=== PATIENT | female | born 1935 | race Caucasian/White ===

== ENCOUNTER 2016-09-13 03:07 | Inpatient (IN) | payer MEDICARE, BC ==
[~2016-09-13] VITALS: Ht 154.9 cm; Wt 79.0 kg
[2016-09-13] VITALS (16 sets, daily range): BP systolic 114–163; BP diastolic 52–80
[2016-09-13 03:34] LABS: BASO # 0.1 x10^3/uL (0.0-0.2); BASO % 1 % (0-3); EOS % 3 % (0-3); HEMATOCRIT 39.4 % (36.0-47.0); HEMOGLOBIN 12.8 g/dL (12.0-15.5); LYMPH % 40 % (24-48); MEAN CORPUSCULAR HEMOGLOBIN 29 pg (25-35); MEAN CORPUSCULAR HGB CONC 33 g/dL (31-37); MEAN CORPUSCULAR VOLUME 90 fL (79-100); MONO % 14 % (0-9); NEUT % 43 % (31-73); PLATELET COUNT 278 x10^3/uL (140-400); RED BLOOD COUNT 4.36 x10^6/uL (3.50-5.40); RED CELL DISTRIBUTION WIDTH 18.5 % (11.5-14.5); WHITE BLOOD COUNT 7.6 x10^3/uL (4.0-11.0)
[2016-09-13 03:43] LABS: CALCIUM 8.9 mg/dL (8.5-10.1); GFR 53.2; POTASSIUM 4.2 mmol/L (3.5-5.1)
[2016-09-13] MEDS ORDERED: NITROGLYCERIN SUBLINGUAL 0.4 MG BOTTLE OF 25. SL ONE (03:47)
[2016-09-13] MEDS ORDERED: ONDANSETRON PF 4 MG/2 ML VIAL. IV PRN (04:00)
[2016-09-13] MEDS ORDERED: NITROGLYCERIN SUBLINGUAL 0.4 MG BOTTLE OF 25. SL PRN (04:00)
[2016-09-13] MEDS: IV NORMAL SALINE 1000ML BAG 1,000 ML IV SCH ×2 (04:18→14:00)
[2016-09-13] MEDS ORDERED: ENAL5TAB PO (05:32)
[2016-09-13] MEDS ORDERED: METF10002 PO (05:32)
[2016-09-13] MEDS ORDERED: ISOS30TA4 PO (05:32)
[2016-09-13] MEDS ORDERED: METO25TA9 PO (05:32)
[2016-09-13] MEDS ORDERED: ASPI-482 PO (05:32)
[2016-09-13] MEDS ORDERED: CLOP75TA PO (05:32)
[2016-09-13] MEDS ORDERED: OMEP10SU PO (05:32)
[2016-09-13] MEDS ORDERED: SIMV40TA PO (05:32)
--- NOTE | 2016-09-13 05:42 | PHYS DOC ---
Past Medical History Past Medical History: Diabetes-Type II, Hypertension Past Surgical History: Appendectomy, Cholecystectomy, Hysterectomy, Splenectomy , Tonsillectomy Alcohol Use: None Drug Use: None Adult General Chief Complaint Chief Complaint: CHEST PAIN-CARDIAC NATURE HPI HPI 81-year-old female who states she's been having significant left upper chest pain that does radiate somewhat into her neck and shoulders that she noticed earlier today with some dizziness as well. She states she wass sitting in her chair when it started. She states last time she had symptoms like this was several months ago and she was admitted to and had a stress test done and was told she did have some mild blockage. She states she was placed on medications and has been symptom free until tonight. She states she took 2 SL nitros at home with significant relief for her symptoms until her symptoms began to return prior to arrival. She speaking in complete sentences and in no acute distress. Review of Systems Review of Systems Constitutional: Denies fever or chills [] Eyes: Denies change in visual acuity, redness, or eye pain [] HENT: Denies nasal congestion or sore throat [] Respiratory: Denies cough or shortness of breath [] Cardiovascular: No additional information not addressed in HPI [] GI: Denies abdominal pain, nausea, vomiting, bloody stools or diarrhea [] : Denies dysuria or hematuria [] Musculoskeletal: Denies back pain or joint pain [] Integument: Denies rash or skin lesions [] Neurologic: Denies headache, focal weakness or sensory changes [] Endocrine: Denies polyuria or polydipsia [] Current Medications Current Medications Current Medications Medications (Trade) Dose Ordered [facility] Start Time Stop Time Status Last Admin Dose Admin Nitroglycerin (Nitrostat) 0.4 mg STK-MED ONCE 09/13/16 03:47 09/13/16 03:48 DC Allergies Allergies Allergies Coded Allergies Type Severity Reaction Last Updated Verified Penicillins Allergy Unknown 09/13/16 Yes Sulfa (Sulfonamide Antibiotics) Allergy Unknown 09/13/16 Yes Physical Exam Physical Exam Constitutional: Well developed, well nourished, no acute distress, non-toxic appearance. [] HENT: Normocephalic, atraumatic, bilateral external ears normal, oropharynx moist, no oral exudates, nose normal. [] Eyes: PERRLA, EOMI, conjunctiva normal, no discharge. [] Neck: Normal range of motion, no tenderness, supple, no stridor. [] Cardiovascular:Heart rate regular rhythm, no murmur [] Lungs & Thorax: Bilateral breath sounds clear to auscultation [] Abdomen: Bowel sounds normal, soft, no tenderness, no masses, no pulsatile masses. [] Skin: Warm, dry, no erythema, no rash. [] Back: No tenderness, no CVA tenderness. [] Extremities: No tenderness, no cyanosis, no clubbing, ROM intact, no edema. [] Neurologic: Alert and oriented X 3, normal motor function, normal sensory function, no focal deficits noted. [] Psychologic: Affect normal, judgement normal, mood normal. [] Current Patient Data Vital Signs Vital Signs Date Time Temp Pulse Resp B/P Pulse Ox O2 Delivery O2 Flow Rate FiO2 09/13/16 03:13 97.7 64 16 168/77 96 Room Air 97.7 Lab Values Laboratory Tests Test 09/13/16 03:25 White Blood Count 7.6x10^3/uL (4.0-11.0) Red Blood Count 4.36x10^6/uL (3.50-5.40) Hemoglobin 12.8g/dL (12.0-15.5) Hematocrit 39.4% (36.0-47.0) Mean Corpuscular Volume 90fL (79-100) Mean Corpuscular Hemoglobin 29pg (25-35) Mean Corpuscular Hemoglobin Concent 33g/dL (31-37) Red Cell Distribution Width 18.5% (11.5-14.5) H Platelet Count 278x10^3/uL (140-400) Neutrophils (%) (Auto) 43% (31-73) Lymphocytes (%) (Auto) 40% (24-48) Monocytes (%) (Auto) 14% (0-9) H Eosinophils (%) (Auto) 3% (0-3) Basophils (%) (Auto) 1% (0-3) Neutrophils # (Auto) 3.2x10^3uL (1.8-7.7) Lymphocytes # (Auto) 3.0x10^3/uL (1.0-4.8) Monocytes # (Auto) 1.0x10^3/uL (0.0-1.1) Eosinophils # (Auto) 0.2x10^3/uL (0.0-0.7) Basophils # (Auto) 0.1x10^3/uL (0.0-0.2) Sodium Level 146mmol/L (136-145) H Potassium Level 4.2mmol/L (3.5-5.1) Chloride Level 110mmol/L (98-107) H Carbon Dioxide Level 28mmol/L (21-32) Anion Gap 8 (6-14) Blood Urea Nitrogen 14mg/dL (7-20) Creatinine 1.0mg/dL (0.6-1.0) Estimated GFR (Cockcroft-Gault) 53.2 Glucose Level 120mg/dL (70-99) H Calcium Level 8.9mg/dL (8.5-10.1) Troponin I Quantitative < 0.017ng/mL (0.000-0.055) Laboratory Tests 09/13/16 03:25 Laboratory Tests 09/13/16 03:25 EKG EKG EKG as interpreted by me shows a sinus rhythm of 67 bpm. There are no obvious signs of ischemia. This EKG does not meet STEMI criteria. There is no ectopy. There is normal intervals. Radiology/Procedures Radiology/Procedures Portable 1 view of the chest as interpreted by me does not reveal an acute cardiopulmonary process Course & Med Decision Making Course & Med Decision Making Pertinent Labs and Imaging studies reviewed. (See chart for details) This 81-year-old female who's having symptoms concerning for angina be admitted to the hospital with cardiology consult. Her EKG, chest x-ray and blood work including a set of cardiac enzymes is negative. Patient was given a sublingual nitroglycerin and a nitroglycerin patch with significant relief of symptoms. Patient is on Plavix and took aspirin earlier. I discussed her case with the hospitalist, Dr. Herrera, who agreed to accept the patient with cardiology consult. I additionally discussed the case with the aircraft servicer, Dr. Roberson , who agreed to admit the patient for further evaluation and treatment. Dr. Roberson states the patient will likely receive heart catheterization later today. Dragon Disclaimer Dragon Disclaimer This electronic medical record was generated, in whole or in part, using a voice recognition dictation system. Departure Departure Impression: Primary Impression: Angina at rest Disposition: ADMITTED INPATIENT Admitting Physician: Lucia Herrera Condition: STABLE Referrals: LUCIA HERRERA MD (PCP) ALISE ELLIOTT DO Sep 13, 2016 05:42
--- NOTE | 2016-09-13 06:29 | EKG ---
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
--- NOTE | 2016-09-13 06:51 | ACF ---
Admit Criteria Forms Admit Criteria Forms Admit Criteria Forms ANGINA Clinical Indications for Admission to Inpatient Care (Place 'X' for any and all applicable criteria): Admission is indicated for suspected angina (e.g, chest pain pattern, angina- equivalent symptom, or other finding suggesting unstable angina) with ANY ONE of the following(1)(2)(3)(4)(5): [X]I. Angina needing acute intervention as indicated by ALL of the following ( 11)(12): [X]a) Unstable angina is present as indicated by angina that is ANY ONE of the following: [ ]i) New onset [ ]ii) Nocturnal [ ]iii) Prolonged at rest [X]iv) Progressive [X]b) Angina warrants acute intervention as indicated by ANY ONE of the following: [ ]i) Recurrent angina (e.g, not responding as previously to treatment) [X]ii) Angina at rest or with low-level activities despite initial medical therapy [ ]iii) New or presumably new ST-segment depression on ECG [ ]iv) Signs or symptoms of heart failure (eg, dyspnea, pulmonary edema) [ ]v) New or worsening mitral regurgitation [ ]vi) Hemodynamic instability [ ]vii) Dangerous arrhythmia (eg, sustained ventricular tachycardia) [ ]viii) History of percutaneous coronary intervention within 6 months [ ]ix) History of coronary artery bypass graft surgery [ ]x) MIGUEL risk score of 2 or greater[A] [ ]xi) History of Diabetes(14) [ ]xii) High-risk cardiac ischemia findings on noninvasive testing (e.g, echocardiogram, treadmill testing, nuclear scan) [ ]xiii) Chronic renal insufficiency (ie, estimated GFR less than 60 mL/min/1.732m) [ ]xiv) Left ventricular ejection fraction less than 40% [ ]II. Evidence of WI (e.g, cardiac biomarkers positive, ST-segment elevation on ECG). Also use Myocardial Infarction. Extended stay beyond goal length of stay may be needed for (1)(26): [ ]a) Intravascular procedural complications such as acute vessel closure, stent malposition, or vessel dissection(27) [ ]b) Extravascular procedural complications such as retroperitoneal hematoma, pericardial effusion, or cardiac tamponade [ ]c) Entry site complications causing bleeding, hematoma, or distal ischemia and requiring ongoing monitoring, surgical repair, or surgical thrombectomy(28) [ ]d) Heart failure [ ]e) Dangerous arrhythmia [ ]f) Hemodynamic instability with persisting symptoms after intensive medical management, or recurring severe prolonged symptoms [ ]g) Postprocedural myocardial infarction or acute renal failure The original [facility] [employer]to content created by [facility] [employer] has been revised. The portions of the content which have been revised are identified through the use of italic text or in bold, and [facility] has neither reviewed nor approved the modified material. All other unmodified content is copyright [email or web address]. Please see references footnoted in the original [facility] [employer]to edition 2016 [place] Sep 13, 2016 06:51
--- NOTE | 2016-09-13 07:10 | PDOC2 ---
CARDIOLOGY CONSULT NOTE CHEIF COMPLAINT: Chest pain, dizziness. Problems: HPI: 81 y.o woman presenting with chest pain. Reports that since last night she has had intermittent back/shoulder pain. Radiated to the left arm/tightness present. No significant exacerbating factors. Relieved with NTG. Denies any syncope but has had dizziness for 6 months. Was seen at [facility] several months ago, apparently told that she had an abnormal stress test and started on Plavix, unclear why cath was not offered. Denies any bleeding issues. NYHA class 2 at baseline. Reports compliance with meds. last night had an episode of dizziness, HR at that time was 75, BP 120/80. PMHX: HTN Mild DM2 SOCHX: Denies alcohol, tob or illicits. FAMHX: NC CURRENT MEDS: Current Medications Medications (Trade) Dose Ordered Sig/Sapna Start Time Stop Time Status Last Admin Dose Admin Nitroglycerin (Nitro-Dur 0.4mg) 1 patch DAILY 09/13/16 09:00 Nitroglycerin (Nitrostat) 0.4 mg PRN Q5MIN PRN 09/13/16 04:00 09/13/16 04:19 0.4 MG Ondansetron HCl 4 mg 4 mg PRN Q8HRS PRN 09/13/16 04:00 09/14/16 03:59 Sodium Chloride (Iv Sodium Chloride 0.9% 1000ml Bag) 1,000 ml @ 100 mls/hr Q10H 09/13/16 04:00 09/14/16 03:59 09/13/16 04:18 100 MLS/HR ALLERGIES: Allergies Coded Allergies Type Severity Reaction Last Updated Verified Penicillins Allergy Unknown 09/13/16 Yes Sulfa (Sulfonamide Antibiotics) Allergy Unknown 09/13/16 Yes ROS: Negative for 03/09 systems reviewed unless otherwise noted above in HPI. PHYSICAL EXAM: Vital Signs: Vital Signs Date Time Temp Pulse Resp B/P Pulse Ox O2 Delivery O2 Flow Rate FiO2 09/13/16 05:15 64 20 163/77 98 Room Air 09/13/16 03:13 97.7 97.7 I & O Intake and Output 09/13/16 07:00 Intake Total 0 ml Output Total 400 ml Balance -400 ml Intake Oral 0 ml Output Urine Total 400 ml Physical Exam: Gen: A/O x 3. NAd CVS: RRR, no m/r/g LUNGS: CTAB ABD: Soft, NT/ND +BS EXT: No edema. 2+ radial pulses. NEURO:Non focal exam Normal mood affect. DIAGNOSTIC TESTING: EKG: SR, LAD, 1st degree AVB. Lab Laboratory Tests Test 09/13/16 03:25 White Blood Count 7.6x10^3/uL (4.0-11.0) Red Blood Count 4.36x10^6/uL (3.50-5.40) Hemoglobin 12.8g/dL (12.0-15.5) Hematocrit 39.4% (36.0-47.0) Mean Corpuscular Volume 90fL (79-100) Mean Corpuscular Hemoglobin 29pg (25-35) Mean Corpuscular Hemoglobin Concent 33g/dL (31-37) Red Cell Distribution Width 18.5% (11.5-14.5) H Platelet Count 278x10^3/uL (140-400) Neutrophils (%) (Auto) 43% (31-73) Lymphocytes (%) (Auto) 40% (24-48) Monocytes (%) (Auto) 14% (0-9) H Eosinophils (%) (Auto) 3% (0-3) Basophils (%) (Auto) 1% (0-3) Neutrophils # (Auto) 3.2x10^3uL (1.8-7.7) Lymphocytes # (Auto) 3.0x10^3/uL (1.0-4.8) Monocytes # (Auto) 1.0x10^3/uL (0.0-1.1) Eosinophils # (Auto) 0.2x10^3/uL (0.0-0.7) Basophils # (Auto) 0.1x10^3/uL (0.0-0.2) Sodium Level 146mmol/L (136-145) H Potassium Level 4.2mmol/L (3.5-5.1) Chloride Level 110mmol/L (98-107) H Carbon Dioxide Level 28mmol/L (21-32) Anion Gap 8 (6-14) Blood Urea Nitrogen 14mg/dL (7-20) Creatinine 1.0mg/dL (0.6-1.0) Estimated GFR (Cockcroft-Gault) 53.2 Glucose Level 120mg/dL (70-99) H Calcium Level 8.9mg/dL (8.5-10.1) ASSESSMENT: 1. Atypical chest pain with possible prior stress test. 2. HTN PLAN: 1. Discussed coronary angiography versus repeat stress test. Patient has had prior possible abn stress according to her. She was planning on possibly undergoing a heart cath due to recent symptoms. 2. Agreeable to proceed now, discussed r/b/a with patient and family. Further recs after heart cath. Thanks for consultation. REYNA JARVIS MD Sep 13, 2016 07:10
--- NOTE | 2016-09-13 07:37 | RAD ---
Indication chest pain. A single view of the chest was obtained and is compared to an examination 04/12/2004. The heart and pulmonary vessels appear normal. The lungs are clear. There is no pleural fluid or pneumothorax. Bony structures appear grossly intact. IMPRESSION: No acute or focal process is seen in the chest
[2016-09-13] MEDS ORDERED: HEPARIN for IV BOLUS 10,000 UNIT/10 ML VIAL. ONE (07:57)
[2016-09-13] MEDS ORDERED: FENTANYL PF 100 MCG/2 ML VIAL. ONE (07:57)
[2016-09-13] MEDS ORDERED: VERAPAMIL 5 MG/2 ML VIAL. ONE (07:57)
[2016-09-13] MEDS ORDERED: NITROGLYCERIN 200 MCG/2 ML SYRINGE FOR CATH/VASC LAB. ONE (07:57)
[2016-09-13] MEDS ORDERED: MIDAZOLAM HCL/PF 2 MG/2 ML VIAL. ONE (07:57)
[2016-09-13] MEDS ORDERED: NITROGLYCERIN 200 MCG/2 ML SYRINGE FOR CATH/VASC LAB. IART ONE (08:30)
[2016-09-13] MEDS ORDERED: LIDOCAINE 2% 20 ML VIAL. IJ ONE (08:30)
[2016-09-13] MEDS ORDERED: IODIXANOL 320 MG/ML 100 ML VIAL. IV ONE (08:30)
[2016-09-13] MEDS ORDERED: VERAPAMIL 5 MG/2 ML VIAL. IART ONE (08:30)
[2016-09-13] MEDS ORDERED: FENTANYL PF 100 MCG/2 ML VIAL. IV ONE (08:30)
[2016-09-13] MEDS ORDERED: HEPARIN for IV BOLUS 10,000 UNIT/10 ML VIAL. IART ONE (08:30)
[2016-09-13] MEDS ORDERED: MIDAZOLAM HCL/PF 2 MG/2 ML VIAL. IV ONE (08:30)
[2016-09-13] MEDS ORDERED: CONTRAST GIVEN MC PRN (08:45)
[2016-09-13] MEDS ORDERED: IODIXANOL 320 MG/ML 100 ML VIAL. ONE (08:56)
[2016-09-13] MEDS ORDERED: LIDOCAINE 2% 20 ML VIAL. ONE (08:56)
[2016-09-13] MEDS ORDERED: IODIXANOL 320 MG/ML 100 ML VIAL. IART ONE (09:00)
--- NOTE | 2016-09-13 09:17 | CARD ---
APPROVED REPORT Procedure(s) performed: Right transradial approach Left Heart Catheterization+ Coronary angiography Aortography HISTORY hypertension: dyslipidemia, family history of premature CAD. INDICATION The indication(s) include : unstable angina . CASE TECHNIQUE During this case, Fluoroscopy and low osmolar contrast were used for imaging. PROCEDURE NARRATIVE The patient was brought electively to the cardiac catheterization lab. A timeout was performed confi rming the patient's name, date of , procedure, and site of procedure. All necessary personnel w ere wearing the appropriate protective equipment and radiation monitor devices. After explaining the risks and benefits of the procedure and alternatives, informed consent was obtained. (See nursing no nurys for medications administered). The right wrist was sterilely prepped and draped in the usual fas hion. The right wrist was infiltrated with 1 mL of 2% lidocaine for subcutaneous anesthesia. A 6 Fr ench Terumo glide sheath was inserted into the right radial artery without difficulty. Right and lef t coronary angiography was performed using a 6Fr TIG 4.0 catheter. Left ventricular end diastolic pr essure was obtained with a pigtail catheter and pullback was performed after left ventriculography. All catheter exchanges and advancements were performed over a guidewire. At case completion the righ t radial sheath was removed and a Terumo radial band was applied with 13 ml of air. The patient tole rated the procedure well and there were no immediate complications. HEMODYNAMICS: LVEDP 18 mm Hg No gradient on LV to aortic pullback. LEFT VENTRICULOGRAM: EF 55% Anterobasal: Normal. Anterolateral: Normal Apical: Normal Diaphragmatic: Normal Posterobasal: Normal *No mitral regurgitation *No aortic insufficiency CORONARY ANGIOGRAPHY: LM is a large caliber short vessel with normal angiographic appearance. LAD is a large caliber vessel with normal angiographic appearance. LCx is a large caliber dominant vessel with normal angiographic appearance. OM1 is a large caliber vessel with normal angiographic appearance. LPDA is a moderate caliber vessel with normal angiographic appearance. RCA is a small caliber non-dominat vessel. Aortography: No significant dilation of the aorta. Conclusion 1. Hypertensive heart disease. 2. Normal coronary angiography. 3. Normal LV function. EF 55%. Recommendations Aggressive Medical Therapy May discontinue plavix.
[2016-09-13] MEDS: NITROGLYCERIN 0.4MG/HR PATCH. TD SCH (09:23)
[2016-09-13] MEDS: ISOSORBIDE MONONITRATE ER 30 MG TAB.ER.24H PO SCH (14:06)
[2016-09-13] MEDS: PANTOPRAZOLE 40 MG TABLET.DR. PO SCH (14:07)
[2016-09-13] MEDS: LISINOPRIL 5 MG TABLET. PO SCH (14:07)
[2016-09-13] MEDS: ASPIRIN ENTERIC COATED 81 MG TABLET.DR. PO SCH (14:07)
--- NOTE | 2016-09-13 14:21 | PDOC ---
GENERAL General: see dictated H&P. Problems: VITAL SIGNS Vital Signs: Vital Signs Date Time Temp Pulse Resp B/P Pulse Ox O2 Delivery O2 Flow Rate FiO2 09/13/16 14:07 55 158/80 09/13/16 10:45 97.7 18 97 Room Air 97.7 I & O I & O Intake and Output 09/13/16 07:00 Intake Total 0 ml Output Total 400 ml Balance -400 ml Intake Oral 0 ml Output Urine Total 400 ml ALLERGIES Allergies: Allergies Coded Allergies Type Severity Reaction Last Updated Verified Penicillins Allergy Unknown 09/13/16 Yes Sulfa (Sulfonamide Antibiotics) Allergy Unknown 09/13/16 Yes MEDS Medications: Current Medications Medications (Trade) Dose Ordered Sig/Sapna Start Time Stop Time Status Last Admin Dose Admin Aspirin (Ecotrin) 81 mg DAILY 09/13/16 14:30 09/13/16 14:07 81 MG Clopidogrel Bisulfate (Plavix) 75 mg DAILY 09/13/16 14:30 09/13/16 14:30 DC Fentanyl Citrate (Fentanyl 2ml Vial) 100 mcg 1X ONCE 09/13/16 08:30 09/13/16 08:31 DC 09/13/16 08:51 25 MCG Heparin Sodium (Porcine) (Heparin Sodium) 2,500 unit 1X ONCE 09/13/16 08:30 09/13/16 08:31 DC 09/13/16 08:52 2,500 UNIT Heparin Sodium/ Sodium Chloride 1,000 ml @ As Directed STK-MED ONCE 09/13/16 08:56 09/13/16 08:57 DC Info 1 each 1 each PRN DAILY PRN 09/13/16 08:45 09/15/16 08:44 Iodixanol (Visipaque 320) 106 ml 1X ONCE 09/13/16 09:00 09/13/16 09:02 DC 09/13/16 09:00 106 ML Isosorbide Mononitrate (Imdur) 30 mg DAILY 09/13/16 14:30 09/13/16 14:06 30 MG Lidocaine HCl 20 ml STK-MED ONCE 09/13/16 08:56 09/13/16 08:57 DC Lisinopril (Prinivil) 5 mg DAILY 09/13/16 14:30 09/13/16 14:07 5 MG Metformin HCl (Glucophage) 1,500 mg DAILYWBKFT 09/15/16 08:00 Midazolam HCl (Versed) 2 mg 1X ONCE 09/13/16 08:30 09/13/16 08:31 DC 09/13/16 08:50 1 MG Nitroglycerin (Nitro-Dur 0.4mg) 1 patch DAILY 09/13/16 09:00 09/13/16 09:23 1 PATCH Nitroglycerin (Nitroglycerin) 200 mcg 1X ONCE 09/13/16 08:30 09/13/16 08:31 DC 09/13/16 08:51 200 MCG Nitroglycerin (Nitrostat) 0.4 mg PRN Q5MIN PRN 09/13/16 04:00 09/13/16 04:19 0.4 MG Ondansetron HCl 4 mg 4 mg PRN Q8HRS PRN 09/13/16 04:00 09/14/16 03:59 Pantoprazole Sodium (Protonix) 40 mg DAILYAC 09/13/16 14:30 09/13/16 14:07 40 MG Simvastatin (Zocor) 40 mg QHS 09/13/16 21:00 Sodium Chloride (Iv Sodium Chloride 0.9% 1000ml Bag) 1,000 ml @ 100 mls/hr Q10H 09/13/16 04:00 09/14/16 03:59 09/13/16 04:18 100 MLS/HR Verapamil HCl (Verapamil) 2.5 mg 1X ONCE 09/13/16 08:30 09/13/16 08:31 DC 09/13/16 08:49 2.5 MG LAB Lab: Laboratory Tests Test 09/13/16 03:25 09/13/16 10:05 White Blood Count 7.6x10^3/uL (4.0-11.0) Red Blood Count 4.36x10^6/uL (3.50-5.40) Hemoglobin 12.8g/dL (12.0-15.5) Hematocrit 39.4% (36.0-47.0) Mean Corpuscular Volume 90fL (79-100) Mean Corpuscular Hemoglobin 29pg (25-35) Mean Corpuscular Hemoglobin Concent 33g/dL (31-37) Red Cell Distribution Width 18.5% (11.5-14.5) Platelet Count 278x10^3/uL (140-400) Neutrophils (%) (Auto) 43% (31-73) Lymphocytes (%) (Auto) 40% (24-48) Monocytes (%) (Auto) 14% (0-9) Eosinophils (%) (Auto) 3% (0-3) Basophils (%) (Auto) 1% (0-3) Neutrophils # (Auto) 3.2x10^3uL (1.8-7.7) Lymphocytes # (Auto) 3.0x10^3/uL (1.0-4.8) Monocytes # (Auto) 1.0x10^3/uL (0.0-1.1) Eosinophils # (Auto) 0.2x10^3/uL (0.0-0.7) Basophils # (Auto) 0.1x10^3/uL (0.0-0.2) Sodium Level 146mmol/L (136-145) Potassium Level 4.2mmol/L (3.5-5.1) Chloride Level 110mmol/L (98-107) Carbon Dioxide Level 28mmol/L (21-32) Anion Gap 8 (6-14) Blood Urea Nitrogen 14mg/dL (7-20) Creatinine 1.0mg/dL (0.6-1.0) Estimated GFR (Cockcroft-Gault) 53.2 Glucose Level 120mg/dL (70-99) Calcium Level 8.9mg/dL (8.5-10.1) Troponin I Quantitative < 0.017ng/mL (0.000-0.055) < 0.017ng/mL (0.000-0.055) LUCIA HERRERA MD Sep 13, 2016 14:21
[2016-09-13] MEDS ORDERED: CLOPIDOGREL BISULFATE 75 MG TABLET PO SCH (14:30)
--- NOTE | 2016-09-13 14:52 | PDOC ---
Provider Note Provider Note Patient heart rate noted to be maintained in the upper 40's and low 50's. On Toprol 12.5mg at home, but did not have dose this morning. Patient reports have frequent dizziness unrelated to positional changes, along with fatigue. Presently asymptomatic. Recommendations Discontinue Toprol Will set up with event monitor for 3-4 weeks. Follow up in our office with Dr. Roberson in one month. FEDERICA LANDEROS APRN Sep 13, 2016 14:52
--- NOTE | 2016-09-13 19:16 | HP ---
ADMIT DATE: 09/13/2016 CHIEF COMPLAINT AND HISTORY OF PRESENT ILLNESS: This 81-year-old white female is well known to me from followup in the office. The patient had the onset of chest and back pain during the night, on the morning prior to admission. It was predominantly located in the back and the shoulder. It radiated into the left arm with tightness. Sublingual nitro relieved and helped the pain. She was back at [facility] several months ago where she had a slightly abnormal stress test and was placed on cardiac medicines for the same with a similar pain episode at that point in time. She has not had, really, further problems up until this and presented to the Emergency Room where she was admitted to rule out acute coronary syndrome. PAST MEDICAL HISTORY: Remarkable for diabetes, hypertension, benign positional vertigo. PAST SURGICAL HISTORY: Remarkable for an appendectomy, cholecystectomy, tonsillectomy, adenoidectomy, hysterectomy. MEDICATIONS: Brought with the patient, listed on the computer and addressed. SOCIAL HISTORY: She is , nonsmoker, nondrinker, does not use drugs. Lives with the son. FAMILY HISTORY: Noncontributory. REVIEW OF SYSTEMS: As mentioned above. She does state that she did not really become diaphoretic or short of breath with this, dizziness seems to be more remarked particularly when she stands up or changes position. PHYSICAL EXAMINATION: GENERAL: She is a well-developed, well-nourished, white female, in no acute distress. VITAL SIGNS: Stable. She is afebrile. HEAD, EYES, EARS, NOSE, THROAT: Remarkable for glasses. NECK: Supple, without lymphadenopathy or thyromegaly. CHEST: Clear to auscultation and percussion. HEART: Regular rate and rhythm without S3, S4 or murmur. ABDOMEN: Soft, nontender, without hepatosplenomegaly or masses. EXTREMITIES: Without cyanosis, clubbing, or edema. NEUROLOGIC: She is intact. IMPRESSION: Chest, back, shoulder pain suspicious for angina. PLAN: The patient has been admitted. Cardiology has been consulted and the patient will be monitored, managed and treated appropriately. LUCIA HERRERA MD DR: JASMIN/elton JOB#: [id number] / [id number]
[2016-09-13] MEDS ORDERED: SIMVASTATIN 40 MG TABLET. PO SCH (21:00)
[2016-09-14 03:24] VITALS: BP 127/60
[2016-09-14 07:00] VITALS: BP 157/72
[2016-09-14 07:05] VITALS: BP 161/73
[2016-09-14 07:10] VITALS: BP 151/67
--- NOTE | 2016-09-14 08:24 | PDOC ---
GENERAL General: see discharge summary. Problems: VITAL SIGNS Vital Signs: Vital Signs Date Time Temp Pulse Resp B/P Pulse Ox O2 Delivery O2 Flow Rate FiO2 09/14/16 03:24 97.5 52 18 127/60 95 Room Air 97.5 I & O I & O Intake and Output 09/14/16 07:00 Intake Total 1700 ml Output Total 1350 ml Balance 350 ml Intake Oral 750 ml IV Total 950 ml Output Urine Total 1350 ml ALLERGIES Allergies: Allergies Coded Allergies Type Severity Reaction Last Updated Verified Penicillins Allergy Unknown 09/13/16 Yes Sulfa (Sulfonamide Antibiotics) Allergy Unknown 09/13/16 Yes MEDS Medications: Current Medications Medications (Trade) Dose Ordered Sig/Sapna Start Time Stop Time Status Last Admin Dose Admin Aspirin (Ecotrin) 81 mg DAILY 09/13/16 14:30 09/13/16 14:07 81 MG Clopidogrel Bisulfate (Plavix) 75 mg DAILY 09/13/16 14:30 09/13/16 14:30 DC Fentanyl Citrate (Fentanyl 2ml Vial) 100 mcg 1X ONCE 09/13/16 08:30 09/13/16 08:31 DC 09/13/16 08:51 25 MCG Heparin Sodium (Porcine) (Heparin Sodium) 2,500 unit 1X ONCE 09/13/16 08:30 09/13/16 08:31 DC 09/13/16 08:52 2,500 UNIT Heparin Sodium/ Sodium Chloride 1,000 ml @ As Directed STK-MED ONCE 09/13/16 08:56 09/13/16 08:57 DC Info 1 each 1 each PRN DAILY PRN 09/13/16 08:45 09/15/16 08:44 Iodixanol (Visipaque 320) 106 ml 1X ONCE 09/13/16 09:00 09/13/16 09:02 DC 09/13/16 09:00 106 ML Isosorbide Mononitrate (Imdur) 30 mg DAILY 09/13/16 14:30 09/13/16 14:06 30 MG Lidocaine HCl 20 ml STK-MED ONCE 09/13/16 08:56 09/13/16 08:57 DC Lisinopril (Prinivil) 5 mg DAILY 09/13/16 14:30 09/13/16 14:07 5 MG Metformin HCl (Glucophage) 1,500 mg DAILYWBKFT 09/15/16 08:00 Midazolam HCl (Versed) 2 mg 1X ONCE 09/13/16 08:30 09/13/16 08:31 DC 09/13/16 08:50 1 MG Nitroglycerin (Nitro-Dur 0.4mg) 1 patch DAILY 09/13/16 09:00 09/13/16 09:23 1 PATCH Nitroglycerin (Nitroglycerin) 200 mcg 1X ONCE 09/13/16 08:30 09/13/16 08:31 DC 09/13/16 08:51 200 MCG Nitroglycerin (Nitrostat) 0.4 mg PRN Q5MIN PRN 09/13/16 04:00 09/13/16 04:19 0.4 MG Ondansetron HCl 4 mg 4 mg PRN Q8HRS PRN 09/13/16 04:00 09/14/16 03:59 DC Pantoprazole Sodium (Protonix) 40 mg DAILYAC 09/13/16 14:30 09/13/16 14:07 40 MG Simvastatin (Zocor) 40 mg QHS 09/13/16 21:00 09/13/16 21:23 40 MG Sodium Chloride (Iv Sodium Chloride 0.9% 1000ml Bag) 1,000 ml @ 100 mls/hr Q10H 09/13/16 04:00 09/13/16 20:03 DC 09/13/16 04:18 100 MLS/HR Verapamil HCl (Verapamil) 2.5 mg 1X ONCE 09/13/16 08:30 09/13/16 08:31 DC 09/13/16 08:49 2.5 MG LAB Lab: Laboratory Tests Test 09/13/16 10:05 09/13/16 15:40 Troponin I Quantitative < 0.017ng/mL (0.000-0.055) 0.017ng/mL (0.000-0.055) LUCIA HERRERA MD Sep 14, 2016 08:24
[2016-09-14] MEDS: NITROGLYCERIN 0.4MG/HR PATCH. TD SCH (09:00)
[2016-09-14] MEDS: PANTOPRAZOLE 40 MG TABLET.DR. PO SCH (09:21)
[2016-09-14] MEDS: ISOSORBIDE MONONITRATE ER 30 MG TAB.ER.24H PO SCH (09:21)
[2016-09-14] MEDS: LISINOPRIL 5 MG TABLET. PO SCH (09:21)
[2016-09-14] MEDS: ASPIRIN ENTERIC COATED 81 MG TABLET.DR. PO SCH (09:21)
[2016-09-14] MEDS ORDERED: DILT180C2 PO (10:01)
[2016-09-14 10:48] VITALS: BP 147/70
--- NOTE | 2016-09-14 16:14 | DS ---
DATE OF DISCHARGE: 09/14/2016 PRIMARY DIAGNOSIS: Noncardiac chest pain. ADDITIONAL DIAGNOSES: Diabetes and dizziness. CHIEF COMPLAINT/HISTORY OF PRESENT ILLNESS: This is an 81-year-old white female who is well known to me from followup in the office. The patient presented with shoulder and upper back pain on the day of admission concerning for an anginal event particularly given the fact she had an abnormal stress test at [facility] last year and had been placed on multiple cardiac medicines for the same and was admitted. SUMMARY OF STAY: The patient was admitted and had completely normal heart catheterization. During the stay on questioning, it seemed like nitroglycerin did give some kind of relief to this pain, so ____ as this could be of esophageal spasm or maybe coronary vasospasm. She was on a PPI prior to admission, and this will be continued. I am going to get rid of the other cardiac medications in her regimen and add some diltiazem to try to prevent coronary spasm as we go home, and otherwise, she will be on her regular medicines. DISPOSITION: The patient is discharged to home, ADA diet, activity as tolerated, office in 1 week. We will see medical records for medications. We will continue to adjust medications as an outpatient. LUCIA HERRERA MD DR: JASMIN/elton JOB#: [id number] / [id number]
[2016-09-15] MEDS ORDERED: METFORMIN 1,000 MG TABLET PO SCH (08:00)
== END 2016-09-14 10:40 | disposition home or self-care (01) | DRG 287 ==
LOC: ER 03:07 → 2 NORTH 03:54
PROVIDERS: ADMIT Family Medicine; ATTEND Family Medicine
PROC: 4A023N7 Measurement of Cardiac Sampling and Pressure, Left Heart, Percutaneous Approach (ICD-10-PCS; principal; 2016-09-13)
PROC: B2111ZZ Fluoroscopy of Multiple Coronary Arteries using Low Osmolar Contrast (ICD-10-PCS; 2016-09-13)
PROC: B2151ZZ Fluoroscopy of Left Heart using Low Osmolar Contrast (ICD-10-PCS; 2016-09-13)
DX: I20.1 Angina pectoris with documented spasm (principal); E11.9 Type 2 diabetes mellitus without complications; H81.10 Benign paroxysmal vertigo, unspecified ear; M25.519 Pain in unspecified shoulder; I10 Essential (primary) hypertension; Z90.49 Acquired absence of other specified parts of digestive tract; Z90.81 Acquired absence of spleen; Z90.710 Acquired absence of both cervix and uterus; Z88.2 Allergy status to sulfonamides; Z88.0 Allergy status to penicillin; K22.4 Dyskinesia of esophagus
CPT/HCPCS: 36415; 71010; 80048; 84484; 85027; 93005; 93458; C1769; C1892; J2250; J3010; J3490; J7030; 99285-25

== ENCOUNTER → 2017-05-16 | Outpatient (CLI) | payer MEDICARE, BC ==
[~2017-05-16] MED LIST: ASPI-482 PO; CLOP75TA PO; DILT180C2 PO; ENAL5TAB PO; ISOS30TA4 PO; METF-620 PO; METO-239 PO; OMEP10SU2 PO; SIMV40TA PO
--- NOTE | 2017-05-17 00:38 | KCIC ---
EXAM: MRI LEFT KNEE WITHOUT CONTRAST. HISTORY: Anteromedial knee pain for one month. TECHNIQUE: MRI of the left knee was performed without intravenous contrast. COMPARISON: None. FINDINGS: There is a nondisplaced nondepressed subchondral fracture along the medial tibial plateau with extensive underlying edema. The anterior cruciate ligament and posterior cruciate ligament are intact. The medial collateral ligament and lateral collateral ligament complex are intact. The patellar retinacula and extensor mechanism are intact. There is a partial tear at the posterior root of the medial meniscus. There is also a longitudinal tear along the free edge of the meniscal body process. There is a small free edge tear of the body and lateral meniscus. Cartilage loss is full thickness along the lateral patellofemoral compartment with subchondral cysts. There is moderate and partial thickness cartilage loss with mild subchondral edema along the medial femoral condyle. The lateral compartmental cartilage is mostly intact. There are small osteophytes along all 3 compartments. There is no joint significant effusion. There is a small amount of fluid in the gastrocnemius-semimembranosus bursa. IMPRESSION: 1. Small subchondral fracture along the central aspect of the medial tibial plateau. This is consistent with an insufficiency lesion. Ongoing follow-up is recommended. 2. Full-thickness cartilage loss along the lateral patellofemoral compartment. Cartilage loss is moderate medial and mild laterally. 3. Partial tear at the posterior root of the medial meniscus. Small free edge tears of the medial and lateral menisci. Electronically signed by: Braulio Fairchild MD (05/17/2017 12:34 AM) [facility]
== END | disposition home or self-care (01) ==
LOC: KCIC MRI 14:05
PROVIDERS: ATTEND Nurse Practitioner Gerontology
DX: S83.242A Other tear of medial meniscus, current injury, left knee, initial encounter (principal); S82.092A Other fracture of left patella, initial encounter for closed fracture; X58.XXXA Exposure to other specified factors, initial encounter; Y93.89 Activity, other specified; Y92.89 Other specified places as the place of occurrence of the external cause; Y99.8 Other external cause status
CPT/HCPCS: 73721

== ENCOUNTER → 2018-05-23 | Outpatient (CLI) | payer MEDICARE, BC ==
[~2018-05-23] MED LIST changes: -METF-620 PO; +METF10007 PO; +REGADENOSON 0.4 MG/5 ML DISP.SYRIN. IV ONE
--- NOTE | 2018-05-23 12:01 | RAD ---
MR#: [id number] Date of Study: 05/23/2018 Ordering Physician: LUCIA HERRERA Referring Physician: AC ENG Tech: BETTIE Ames APPROVED REPORT Test Type: Pharmacological Stress Nurse/Tech: Angelica Hernandez R.N. Test Indications: MILLIGAN Cardiac History: Family history, Hypertension, Diabetes Medications: See Electronic Medical Record Medical History: See Electronic Medical Record Resting ECG: NSR Resting Heart Rate: 71 bpm Resting Blood Pressure: 157/73mmHg Pretest Chest Pain: No chest pain Nurse/Tech Notes S1S2, lungs sound clear Consent: The procedure was explained to the patient in lay terms. Informed consent was witnessed. Mark eout was entered into Hangtime. History and Stress Test performed by Angelica Hernandez R.N. Pharm. Details Pharmacologic stress testing was performed using 0.4mg per 5ml of regadenoson given intravenously ove r 7-10 seconds. Stress Symptoms chest pressure POST EXERCISE Reason for Termination: Infusion complete Target HR: 117 Max HR: 118 bpm Max Blood Pressure: 168/59mmHg Blood Pressure response to exercise: Normal blood pressure response during stress. Chest Pain: Yes. mid sternal chest pressure Arrhythmia: No. ST Change: No. INTERPRETATION Stress EKG Conclusion: The resting EKG shows a sinus rhythm with mild nonspecific ST changes. The stress EKG shows no significant changes from baseline. No EKG evidence of stressed induced ischemia. Imaging Protocol IMAGE PROTOCOL: Rest Tc-99m/stress Tc-99m 1 day Rest: Stress: Viability: Radiopharm.Tc99m GgbworzfdBr02w Sestamibi Dose11.6mCi 33.1mCi Duration 15min. 13min. Img Date 05/23/2018 05/23/2018 Inj-Img Jucy32upp. 60min. Rest Admin Site:IV - Left ForearmAdministrator:Wan Garrett, BEATER LEAD Stress Admin Site: IV - Left ForearmAdministrator: Wan Garrett, BEATER LEAD STRESS DATA End Diast. Vol.98.0mlLVEDV index BSA57.0ml End Syst. Vol.31.0mlLVESV index BSA18.0ml Myocardial Axrc000.0gEject. Ezuvaper23.0% Stress Scores Regional WT0.00Summed WT2.00 Regional WM0.00Summed WM1.00 LV Perfusion The stress images show an anterior septal defect. The rest images showed no significant defects. Nuclear imaging shows an area of reversible ischemia in the anterior septal wall. Wall Motion Left ventricular systolic function is normal with an ejection fraction of 68%. LV Perf. Quant 17 Seg. SSS13.00 17 Seg. SRS4.00 17 Seg. SDS9.00 Stress Defect Extent (% LAD)40.00Rest Defect Extent (% LAD)2.50Rev. Defect Extent (% LAD)40.00 Stress Defect Extent (% LCX) 40.00Rest Defect Extent (% LCX)18.80Rev. Defect Extent (% LCX)35.00 Stress Defect Extent (% RCA)0.00Rest Defect Extent (% RCA)0.00Rev. Defect Extent (% RCA)0.00 Stress Defect Extent (% CARMENZA)28.00Rest Defect Extent (% CARMENZA)6.10Rev. Defect Extent (% CARMENZA)27.00 Conclusion 1. No EKG evidence of stressed induced ischemia. 2. Nuclear imaging shows an area of reversible ischemia in the anterior septal wall. 3. Left ventricular systolic function is normal with an ejection fraction of 60%. 4. Moderate to moderately high risk Lexiscan nuclear stress test positive for an area of reversible i schemia. Signed by : Richi Munoz MD Electronically Approved : 05/23/2018 12:00:14
== END | disposition home or self-care (01) ==
LOC: NM 07:10
PROVIDERS: ATTEND Family Medicine
DX: R07.89 Other chest pain (principal); R06.09 Other forms of dyspnea; I10 Essential (primary) hypertension; E11.9 Type 2 diabetes mellitus without complications; Z82.49 Family history of ischemic heart disease and other diseases of the circulatory system
CPT/HCPCS: 78452; 93017; 96374; A9500; J2785

== ENCOUNTER 2018-07-29 06:56 | Outpatient (CLI) | payer MEDICARE, BC ==
[2018-07-29] VITALS (11 sets, daily range): BP systolic 104–179; BP diastolic 50–76
[~2018-07-29] VITALS: Ht 152.4 cm; Wt 73.5 kg
[~2018-07-29 06:56] MED LIST changes: -REGADENOSON 0.4 MG/5 ML DISP.SYRIN. IV ONE
[2018-07-29] MEDS ORDERED: APIX5TAB PO (07:21)
[2018-07-29 07:36] LABS: HEMOGLOBIN 13.2 g/dL (12.0-15.5); RED BLOOD COUNT 4.43 x10^6/uL (3.50-5.40); RED CELL DISTRIBUTION WIDTH 15.1 % (11.5-14.5); WHITE BLOOD COUNT 8.3 x10^3/uL (4.0-11.0)
[2018-07-29 07:46] LABS: PROTHROMBIN TIME PATIENT 13.7 SEC (11.7-14.0)
[2018-07-29 07:53] LABS: CALCIUM 9.6 mg/dL (8.5-10.1); CREATININE 0.9 mg/dL (0.6-1.0); GFR 59.8; POTASSIUM 4.4 mmol/L (3.5-5.1)
[2018-07-29] MEDS ORDERED: HEPARIN for ARTERIAL LINE 1,500 ML ONE (08:02)
[2018-07-29] MEDS ORDERED: LIDOCAINE 1% PF 2 ML VIAL. ONE (08:02)
[2018-07-29] MEDS ORDERED: IOHEXOL 300 MG/ML 100ML VIAL. ONE (08:02)
[2018-07-29] MEDS ORDERED: fentaNYL PF VIAL 100 MCG/2 ML VIAL ONE (08:04)
[2018-07-29] MEDS ORDERED: MIDAZOLAM HCL/PF 2 MG/2 ML VIAL. ONE (08:04)
[2018-07-29] MEDS ORDERED: VERAPAMIL 5 MG/2 ML VIAL. ONE (08:06)
[2018-07-29] MEDS ORDERED: HEPARIN for IV BOLUS 10,000 UNIT/10 ML VIAL. ONE (08:06)
[2018-07-29] MEDS ORDERED: NITROGLYCERIN 200 MCG/2 ML SYRINGE FOR CATH/VASC LAB. ONE (08:07)
[2018-07-29] MEDS ORDERED: NITROGLYCERIN 200 MCG/2 ML SYRINGE FOR CATH/VASC LAB. IART ONE (08:30)
[2018-07-29] MEDS ORDERED: LIDOCAINE 1% PF 2 ML VIAL. INJ ONE (08:30)
[2018-07-29] MEDS ORDERED: fentaNYL PF VIAL 100 MCG/2 ML VIAL IV ONE (08:30)
[2018-07-29] MEDS ORDERED: VERAPAMIL 5 MG/2 ML VIAL. IART ONE (08:30)
[2018-07-29] MEDS ORDERED: HEPARIN for IV BOLUS 10,000 UNIT/10 ML VIAL. IART ONE (08:30)
[2018-07-29] MEDS ORDERED: MIDAZOLAM HCL/PF 2 MG/2 ML VIAL. IV ONE (08:30)
[2018-07-29] MEDS ORDERED: IOHEXOL 300 MG/ML 100ML VIAL. IART ONE (08:30)
--- NOTE | 2018-07-29 08:31 | PDOC ---
MODERATE SEDATION ASSESSMENT RISKS/ALTERNATIVES Risks/Alternatives Risks and alternatives of this type of sedation and procedure discussed with: RISK/ALTERNATIVES: Patient H & P ON CHART H & P H & P on chart and reviewed for co-morbid conditions and appropriate labs. H&P ON CHART: Yes STATUS PREG STATUS ASSESSED: N/A MEDS/ALLERGIES REVIEWED Meds/Allergies Reviewed Medications and Allergies including time and route of recently administered narcotics and sedatives. MEDS/ALLERGIES REVIEWED: Yes ASA RATING ASA RATING: II AIRWAY ASSESSMENT Airway Assessment Airway patency, oral function limitations, presence of caps, crowns, dentures, partials, and ability to extend neck assessed. AIRWAY ASSESSMENT: Yes MALLAMPATI SCORE MALLAMPATI SCORE: II PRE-SEDATION ASSESSMENT PRE-SEDATION ASSESSMENT: Yes REYNA JARVIS MD Jul 29, 2018 08:31
--- NOTE | 2018-07-29 08:34 | PDOC ---
Provider Note Provider Note Brief cardiology history and physical prior to procedure Reason for procedure persistent chest pain despite medical therapy Pleasant 83-year-old woman who previously had a coronary angio in the setting of atypical chest pain approximately 2 and half years ago and this did not reveal any significant pathology. She return to us with atypical chest pain of unclear etiology. After other acute issues were evaluated she underwent a repeat stress test which suggested an anterior wall perfusion defect. In light of this and her atypical chest pain it was felt to be an artifact. She was tried on multiple agents but despite therapy she continues to have chest pain. We discussed the risks and benefits of repeat cardiac catheterization and she wishes to proceed. Past medical history Diabetes on oral medications Dyslipidemia Paroxysmal atrial fibrillation Mild hypertension Allergies to penicillins and sulfa Current cardiovascular medications Enalapril, simvastatin and Eliquis Review systems otherwise negative unless noted above in history of present illness Physical examination GEN.: No apparent distress. Alert and oriented. HEENT: Head is normocephalic, atraumatic NECK: Supple. LUNGS: Clear to auscultation. HEART: RRR, S1, S2 present. Peripheral pulses intact ABDOMEN: Soft, nontender. Positive bowel sounds. EXTREMITIES: Without any cyanosis. NEUROLOGIC: Normal speech, normal tone PSYCHIATRIC: Normal affect, normal mood. SKIN: No ulcerations Labs reviewed and no acute upper maladies noted today Impression 1. Persistent atypical chest pain did not resolve despite medical therapy with anterior perfusion defect on stress testing Recommendations: 1. I discussed the merits of repeat cardiac catheterization with the patient and since she has persistent chest pain despite medical therapy will rule out any occult coronary disease. REYNA JARVIS MD Jul 29, 2018 08:34
[2018-07-29] MEDS ORDERED: CONTRAST GIVEN. MC PRN (08:45)
[2018-07-29] MEDS ORDERED: LIDOCAINE 1% Multi-Dose 20 ML VIAL. ONE (08:57)
[2018-07-29] MEDS ORDERED: IV NORMAL SALINE 250ML 250 ML IV ONE (09:00)
[2018-07-29] MEDS ORDERED: LIDOCAINE 1% Multi-Dose 20 ML VIAL. INJ ONE (09:00)
[2018-07-29] MEDS ORDERED: IV NORMAL SALINE 500ML BAG 500 ML IV ONE (09:30)
--- NOTE | 2018-07-29 09:55 | CARD ---
MR#: [id number] Date of Study: 07/29/2018 Ordering Physician: REYNA JARVIS, Referring Physician: REYNA JARVIS, Tech: RT Gabriel (R) APPROVED REPORT Technologist: RT Gabriel (R) Nurse: Tamica Morales RN Procedure(s) performed: Moderate sedation: 40 Minutes LHC, Coronary angiography, Left ventriculogram, Non-selective aortogram HISTORY The patient is a 83 year-old female with a history of : hypertension. INDICATION The indication(s) include : chest pain, dyspnea. [facility] Clinical Frailty Scale [facility] Clinical Frailty Scale: Mildly Frail Heart Failure Heart Failure: No If Yes, Newly Diagnosed: No PROCEDURE NARRATIVE CLINICAL PRESENTATION: 83 y.o woman with HTN and PAF presented with persistent chest pain and dyspnea. She had an abnormal s tress test and despite optimal anti-anginal therapy continued to have dyspnea and chest pain and ther efore she was brought to the general production laborer to rule out cardiac issues. INFORMED CONSENT: After explaining the risks and benefits of the procedure and alternatives, informed consent was obtained. The patient was brought electively to the cardiac catheterization lab. A timeout was performed confi rming the patient's name, date of , procedure, and site of procedure. All necessary personnel w ere wearing the appropriate protective equipment and radiation monitor devices. (See nursing notes for medications administered). ACCESS: The right wrist was sterilely prepped and draped in the usual fashion. The right wrist was infiltrat ed with 1 mL of 2% lidocaine for subcutaneous anesthesia. A 6 Urdu Terumo glide sheath was inserte d into the right radial artery without difficulty. The guidewire initially advanced to an accessory v essel in the arm due to a fore-arm radial loop. Therefore, advancement of a 5Fr TIG catheter was not able to be performed. Limited angiography of the forearm and arm did not reveal any perforation or st aining. CORONARY ANGIOGRAPHY: Right and left coronary angiography was performed using a 6Fr TIG 4.0 catheter. Left ventricular en d diastolic pressure was obtained with a pigtail catheter and pullback was performed after left ventr iculography. All catheter exchanges and advancements were performed over a guidewire. CLOSURE: At case completion the right radial sheath was removed and a Terumo radial band was applied with 13 m l of air. COMPLICATIONS: The patient tolerated the procedure well and there were no immediate complications. FINDINGS: HEMODYNAMICS: LVEDP 10 mm Hg No gradient on LV to aortic pullback. AO: 110/70 LEFT VENTRICULOGRAM: EF 55% Anterobasal: Normal. Anterolateral: Normal Apical: Normal Diaphragmatic: Normal Posterobasal: Normal CORONARY ANGIOGRAPHY: LM is a large caliber vessel with normal angiographic appearance. LAD is a large caliber vessel with normal angiographic appearance. D1/D2 are small caliber vessels with normal angiographic apeparance. LCx is a large caliber dominant vessel with normal angiographic appearance. OM1 is a moderate caliber vessel with normal angiographic appearance. RCA is a small caliber non-dominant vessel with normal angiographic appearance. Conclusion 1. Normal left sided filling pressures. 2. Normal LV systolic function. EF 55% 3. Normal angiographic appearance of the coronary arteries. Recommendations Evaluation for non-cardiac causes of chest pain/dyspnea. Signed by : Reyna Jarvis, Electronically Approved : 07/29/2018 09:54:48
[2018-07-29] MEDS ORDERED: 0.9 % SODIUM CHLORIDE 10 ML DISP.SYRIN. IV PRN (10:45)
[2018-07-29] MEDS ORDERED: NITROGLYCERIN SUBLINGUAL 0.4 MG BOTTLE OF 25. SL PRN (10:45)
--- NOTE | 2018-07-29 12:51 | NUR ---
discharge instructions reviewed with patient and family. Pt stated understanding. Pt ambulated and tolerated PO. Pt home with family
== END 2018-07-29 13:00 | disposition home or self-care (01) ==
LOC: CCL 06:56
PROVIDERS: ATTEND Internal Medicine Cardiovascular Disease
DX: R94.39 Abnormal result of other cardiovascular function study (principal); I11.0 Hypertensive heart disease with heart failure; I50.33 Acute on chronic diastolic (congestive) heart failure; Z88.0 Allergy status to penicillin; Z88.2 Allergy status to sulfonamides; E11.9 Type 2 diabetes mellitus without complications; E78.5 Hyperlipidemia, unspecified; I48.0 Paroxysmal atrial fibrillation; Z79.84 Long term (current) use of oral hypoglycemic drugs; Z79.899 Other long term (current) drug therapy
CPT/HCPCS: 36415; 80048; 85027; 85610; 93458; 99152; 99153; C1769; C1892; J1644; J2250; J3010; J3490; J7040; J7050; Q9967; C1760; G0269; C1771; J7030

== ENCOUNTER → 2018-08-27 | Outpatient (CLI) | payer MEDICARE, BC ==
[2018-07-29 12:00] VITALS: BP 119/58
[~2018-08-27] MED LIST changes: +APIX5TAB PO
--- NOTE | 2018-08-27 15:17 | RAD ---
Fluoroscopy of the diaphragm, 08/27/2018: Elevated right hemidiaphragm 0.7 minutes of fluoroscopy time was utilized for this exam. Two dynamic fluoroscopic sequences were recorded. The left hemidiaphragm demonstrates normal movement with inspiration and expiration and with the sniff maneuver. The right hemidiaphragm does not move significantly on inspiration or expiration. With the sniff maneuver there is mild paradoxical motion of the right hemidiaphragm. 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 Electronically signed by: Roland Lopez MD (08/27/2018 3:14 PM) [facility]
== END | disposition home or self-care (01) ==
LOC: RAD 13:29
PROVIDERS: ATTEND Family Medicine
DX: R06.02 Shortness of breath (principal)
CPT/HCPCS: 76000

== ENCOUNTER → 2018-09-05 | Outpatient (CLI) | payer MEDICARE, BC ==
[2018-07-29 12:00] VITALS: BP 119/58
[~2018-09-05] MED LIST changes: +CONTRAST GIVEN. MC PRN; +IOHEXOL 350 MG/ML 100 ML VIAL. IV ONE
--- NOTE | 2018-09-05 10:57 | RAD ---
PQRS Compliance Statement: One or more of the following individualized dose reduction techniques were utilized for this examination: 1. Automated exposure control 2. Adjustment of the mA and/or kV according to patient size 3. Use of iterative reconstruction technique CT angiography chest with contrast 09/05/2018 9:00 AM INDICATION: Shortness of air COMPARISON: None available TECHNIQUE: Axial CT images of the chest were obtained after the intravenous administration of nonionic contrast. Coronal and sagittal reformats are provided. Maximum intensity projection images of the thoracic vasculature are provided. FINDINGS: Thyroid gland is normal in appearance. Heart size is borderline enlarged. There is no pericardial effusion. Thoracic aorta is normal in course and caliber. Calcified mediastinal and bilateral hilar lymph nodes are identified. There are no pathologically enlarged axillary, mediastinal or hilar lymph nodes. There is a small hiatal hernia. Gastric bypass post surgical changes are identified. There is adequate opacification of pulmonary arteries. No filling defects are identified in the pulmonary arteries to suggest acute or chronic pulmonary emboli. There is elevation the right hemidiaphragm. There is adjacent subsegmental at the right lower lobe. There is no pulmonary vascular congestion. No pleural effusions or pneumothorax. Lungs are otherwise clear. No suspicious osseous amount is identified. Simple appearing renal cysts are identified in the superior pole the right kidney. Visualized portions of the liver appear normal. Gallbladder surgically absent. There is mild atrophy of the pancreas. IMPRESSION: No acute pulmonary embolism is identified. There is persistent elevation right hemidiaphragm with subsegmental atelectasis at the right lung base. Electronically signed by: Amber Vasquez MD (09/05/2018 10:54 AM) [id number]
== END | disposition home or self-care (01) ==
LOC: CT 08:30
PROVIDERS: ATTEND Family Medicine
DX: K44.9 Diaphragmatic hernia without obstruction or gangrene (principal); K86.89 Other specified diseases of pancreas
CPT/HCPCS: 36415; 71275; 82565; 84520; Q9967

== ENCOUNTER → 2018-09-25 | Outpatient (CLI) | payer MEDICARE, BC ==
[2018-07-29 12:00] VITALS: BP 119/58
[~2018-09-25] MED LIST changes: -CONTRAST GIVEN. MC PRN; -IOHEXOL 350 MG/ML 100 ML VIAL. IV ONE
--- NOTE | 2018-09-25 10:44 | CARD ---
MR#: [id number] Date of Study: 09/25/2018 Ordering Physician: LUCIA HERRERA, Referring Physician: LUCIA HERRERA, Tech: Juana Mandujano JAYLIN APPROVED REPORT EXAM: Two-dimensional and M-mode echocardiogram with Doppler and color Doppler. Other Information Quality : AverageHR: 75bpm Rhythm : NSR INDICATION Shortness of breath 2D DIMENSIONS RVDd3.0 (2.9-3.5cm)Left Atrium(2D)3.7 (1.6-4.0cm) IVSd1.1 (0.7-1.1cm)Aortic Root(2D)3.1 (2.0-3.7cm) LVDd4.5 (3.9-5.9cm)LVOT Diameter1.9 (1.8-2.4cm) PWd1.1 (0.7-1.1cm)LVDs3.2 (2.5-4.0cm) FS (%) 29.5 %SV52.8 ml LVEF(%)56.6 (>50%) M-Mode DIMENSIONS Left Atrium(MM)4.42 (2.5-4.0cm)Aortic Root3.67 (2.2-3.7cm) Aortic Valve AoV Peak Joe.133.2cm/sAoV VTI23.9cm AO Peak GR.7.1mmHgLVOT Peak Joe.103.4cm/s AO Mean GR.3mmHgAVA (VMAX)2.18cm2 MARLENE (VTI)2.56nh4BW P 1/2 Hujc637gc Mitral Valve MV E Ffewqjwp21.9cm/sMV DECEL AWMW022kn MV A Yptpjakx54.8cm/sE/A Ratio0.6 MV A Pdcismvr089ku Pulmonary Valve PV Peak Wlrgvozy314.6cm/s Tricuspid Valve TR P. Cwndtjkv192ma/sRAP NCUDMBGL5itJm TR Peak Gr.08glJmEJSG80suZa LEFT VENTRICLE The left ventricle is normal size. There is borderline to mild concentric left ventricular hypertroph y. The left ventricular systolic function is normal. The Ejection Fraction is 55-60%. Septal motion c onsistent with conduction abnormality. Transmitral Doppler flow pattern is Grade I-abnormal relaxatio n pattern. RIGHT VENTRICLE The right ventricle is normal size. There is normal right ventricular wall thickness. The right ventr icular systolic function is normal. ATRIA The left atrium size is normal. The right atrium size is normal. The interatrial septum is intact wit h no evidence for an atrial septal defect or patent foramen ovale as noted on 2-D or Doppler imaging. AORTIC VALVE The aortic valve is normal in structure and function. The aortic valve is trileaflet. Doppler and Col or Flow revealed mild aortic regurgitation. There is no significant aortic valvular stenosis. MITRAL VALVE Mitral annular calcification is mild. There is no evidence of mitral valve prolapse. There is no mitr al valve stenosis. Doppler and Color-flow revealed trace mitral regurgitation. TRICUSPID VALVE The tricuspid valve is normal in structure and function. Doppler and Color Flow revealed trace tricus pid regurgitation. The PA pressure was estimated at 24 mmHg. There is no tricuspid valve prolapse or vegetation. There is no tricuspid valve stenosis. PULMONIC VALVE The pulmonic valve is not well visualized. GREAT VESSELS The aortic root is normal in size. The ascending aorta is normal in size. The IVC is normal in size a nd collapses >50% with inspiration. PERICARDIAL EFFUSION There is no evidence of significant pericardial effusion. Critical Notification Critical Value: No <Conclusion> The left ventricular systolic function is normal. The Ejection Fraction is 55-60%. Transmitral Doppler flow pattern is Grade I-abnormal relaxation pattern. Mild aortic regurgitation. Trace mitral regurgitation. Trace tricuspid regurgitation. The PA pressure was estimated at 24 mmHg. There is no evidence of significant pericardial effusion. Signed by : Tae Wright, Electronically Approved : 09/25/2018 10:43:33
== END | disposition home or self-care (01) ==
LOC: ECHO 09:29
PROVIDERS: ATTEND Family Medicine
DX: I08.0 Rheumatic disorders of both mitral and aortic valves (principal); I11.9 Hypertensive heart disease without heart failure
CPT/HCPCS: 93306

== ENCOUNTER → 2018-10-17 | Outpatient (CLI) | payer MEDICARE, BC ==
[2018-07-29 12:00] VITALS: BP 119/58
[~2018-10-17] MED LIST changes: +CONTRAST GIVEN. MC PRN; +IOHEXOL 240 MG/ML 50ML VIAL. PO ONE
--- NOTE | 2018-10-17 14:12 | RAD ---
CT of the abdomen and pelvis without contrast, 10/17/2018: HISTORY: Abdominal pain Multidetector CT imaging was performed without IV contrast as requested. Oral contrast material was administered for GI tract opacification. There are mild bilateral peripheral and streaky right basilar opacities similar to those seen on 09/05/2018, probably representing scarring. The heart is enlarged. Coronary artery calcifications are present. There are granulomatous calcifications in the lower chest. The unopacified liver is unremarkable. Mild prominence of the common hepatic duct is probably secondary to the postcholecystectomy state. There are numerous surgical clips in the left upper quadrant producing artifacts partially obscuring the pancreas. No definite pancreatic abnormality is seen. The spleen is surgically absent. Two right renal cysts are again noted. The unopacified kidneys are otherwise unremarkable. Aortoiliac calcific plaquing is present without evidence of aneurysm. No abdominal or pelvic adenopathy is seen. Gas is noted in the urinary bladder, likely on an iatrogenic basis. There are surgical clips and sutures related to the stomach and small bowel loops in the left upper quadrant compatible with the given history of yue shunt type surgery. The bowel loops are not dilated. There is a large collection of stool in the rectum. No free fluid or free air is evident in the abdomen or pelvis. There is a moderate thoracolumbar scoliosis with moderate multilevel hypertrophic degenerative change. IMPRESSION: 1. Rectal fecal impaction. 2. Gas in the urinary bladder is probably on a degenerative basis. Clinical correlation suggested. 3. Miscellaneous chronic findings as described above. PQRS Compliance Statement: One or more of the following individualized dose reduction techniques were utilized for this examination: 1. Automated exposure control 2. Adjustment of the mA and/or kV according to patient size 3. Use of iterative reconstruction technique Electronically signed by: Roland Lopez MD (10/17/2018 2:08 PM) [facility]
--- NOTE | 2018-10-28 12:32 | SLEEP ---
DATE OF STUDY: 10/25/2018 REFERRING PHYSICIAN: Dr. Lucia Vega. The patient is 83 years old who weighs 162 pounds with a BMI of 31.6. The patient's Wade score was not available. The patient underwent home sleep study performed by [facility]. Total recording time was 419 minutes. During the night study, the patient had 59 obstructive apneas, no central apneas, 9 mixed apneas and 25 hypopneas. The patient's apnea hypopnea index was 13.3 per hour. No supine sleep was recorded. Nocturnal oximetry study revealed a mean oxygen saturation of 92%, the lowest of 79%. Six minutes were spent in oxygen saturation less than 85% and 40 minutes with saturation less than 90%. Mean heart rate of 66 beats per minute with a maximum 98 beats per minute. IMPRESSION: 1. Mild sleep apnea-hypopnea syndrome with an AHI of 13 per hour. 2. Mild nocturnal hypoxia secondary to obstructive sleep apnea. RECOMMENDATIONS: 1. The patient has mild sleep apnea, which can be treated with multiple options. I would recommend weight loss as the initial form of treatment. 2. If the patient remains clinically symptomatic despite weight loss, then consider treatment with either oral appliance as recommended by the dentist versus a trial of CPAP. 3. Once the patient is optimally treated, then follow up in 4-6 weeks to assess compliance with treatment and to document clinical improvement. 4. Avoid [employer] depressants. 5. Caution regarding driving until symptoms of sleep apnea resolve with above recommendation. BYRON MOSLEY MD DR: LENIN/elton JOB#: [id number] / [id number] LUCIA Patrick
== END | disposition home or self-care (01) ==
LOC: CT 10:24
PROVIDERS: ATTEND Internal Medicine Pulmonary Disease
DX: K56.41 Fecal impaction (principal); I25.10 Atherosclerotic heart disease of native coronary artery without angina pectoris; J84.10 Pulmonary fibrosis, unspecified; N28.1 Cyst of kidney, acquired; I51.7 Cardiomegaly; M41.85 Other forms of scoliosis, thoracolumbar region; M47.815 Spondylosis without myelopathy or radiculopathy, thoracolumbar region
CPT/HCPCS: 74176; Q9966

== ENCOUNTER → 2018-10-27 | Outpatient (CLI) | payer MEDICARE, BC ==
[2018-07-29 12:00] VITALS: BP 119/58
[~2018-10-27] MED LIST changes: -CONTRAST GIVEN. MC PRN; -IOHEXOL 240 MG/ML 50ML VIAL. PO ONE
== END | disposition home or self-care (01) ==
LOC: RT 10:20
PROVIDERS: ATTEND Internal Medicine Critical Care Medicine
DX: G47.33 Obstructive sleep apnea (adult) (pediatric) (principal)
CPT/HCPCS: G0399

== ENCOUNTER → 2018-12-18 | Outpatient (CLI) | payer MEDICARE, BC ==
[2018-07-29 12:00] VITALS: BP 119/58
[~2018-12-18] MED LIST changes: +ALBUTEROL SULFATE 2.5 MG/3 ML NEBU. NEB ONE
--- NOTE | 2018-12-18 10:48 | RAD ---
LUMBAR SPINE WO CONTRAST Date: 12/18/2018 10:30 AM Indication: Low back pain with bilateral lower extremity radiculopathy. Comparison: CT abdomen and pelvis 10/17/2018. Technique: Multi-planar multi-weighted magnetic resonance imaging of the lumbar spine was performed without intravenous contrast using the standard lumbar spine protocol. FINDINGS: Right convex lumbar curvature. 5 mm anterolisthesis at L5-S1. No acute fracture. Moderate multilevel degenerative disc desiccation and disc height loss. Trace degenerative endplate edema at L1-2 and L4-5. Fatty degenerative endplate changes at L3-4. Multilevel Schmorl's nodes. Slightly low-lying conus terminating at the level of the L2-3 disc space. No abnormal signal is seen within the visualized distal spinal cord. No redundancy of the nerve roots of the cauda equina proximal to the L4-5 stenosis. Partially visualized bilateral renal cysts, better characterized on prior CT abdomen and pelvis. T12-L1: Disc bulge. Mild facet arthropathy. No significant spinal stenosis or neural foraminal narrowing. L1-L2: Disc bulge. Mild facet arthropathy. No significant spinal stenosis or neural foraminal narrowing. L2-L3: Disc bulge. Mild facet arthropathy. No significant spinal stenosis. Mild bilateral neural foraminal narrowing. L3-L4: Disc bulge. Moderate facet arthropathy. Ligament flavum thickening. Mild spinal stenosis and left lateral recess narrowing. Mild right and moderate left neural foraminal narrowing. L4-L5: Disc bulge. Severe facet arthropathy. Ligamentum flavum thickening. Severe spinal stenosis. Moderate to severe neural foraminal narrowing. L5-S1: Disc bulge. Mild facet arthropathy. Moderate spinal stenosis. Mild left and moderate right neural foraminal narrowing. IMPRESSION: Severe spinal stenosis at L4-5. Degenerative changes at the remaining levels as detailed above. Electronically signed by: Anthony Tobin MD (12/18/2018 10:45 AM) [facility]
--- NOTE | 2018-12-23 16:46 | RESP ---
DATE OF SERVICE: 12/18/2018 ATTENDING PHYSICIAN: Anthony Vega MD The patient's FEV1 was 0.82, which is 50% predicted, FVC 1.19, which is 55% predicted. The FEV1/FVC ratio was reduced. There was an excellent response to bronchodilator with 15% improvement in FVC and 22% improvement in FEV1. Lung volume showed a total lung capacity of 156% predicted, residual volume 280% of predicted. Diffusion capacity could not be performed. IMPRESSION: 1. Moderate obstructive airway disease. 2. Excellent response to bronchodilators, suggesting a component of reactive airway disease. Lung volumes consistent with hyperinflation and air trapping. Diffusion capacity could not be performed. BYRON MOSLEY MD DR: LENIN/elton JOB#: [id number] / [id number]
== END | disposition home or self-care (01) ==
LOC: PF 07:36
PROVIDERS: ATTEND Family Medicine
DX: M48.07 Spinal stenosis, lumbosacral region (principal); M47.26 Other spondylosis with radiculopathy, lumbar region; N28.1 Cyst of kidney, acquired; M12.88 Other specific arthropathies, not elsewhere classified, other specified site; J98.8 Other specified respiratory disorders
CPT/HCPCS: 72148; 94060; 94726; 94729; J7613; 94640

== ENCOUNTER → 2020-10-05 | Outpatient (CLI) | payer MEDICARE, BC ==
[2018-07-29 12:00] VITALS: BP 119/58
[~2020-10-05] MED LIST changes: -ALBUTEROL SULFATE 2.5 MG/3 ML NEBU. NEB ONE; -ENAL5TAB PO; +ENAL5TAB12 PO; -ISOS30TA4 PO; +ISOS30TA68 PO
--- NOTE | 2020-10-06 10:02 | CARD ---
MR#: [id number] Date of Study: 10/05/2020 Ordering Physician: REYNA ROBERSON, Referring Physician: REYNA ROBERSON, Tech: Dee Alvarado, [facility] APPROVED REPORT EXAM: Two-dimensional and M-mode echocardiogram with Doppler and color Doppler. Other Information Quality : AverageHR: 67bpm INDICATION Atrial Fibrillation RISK FACTORS Hypertension Hyperlipidemia Diabetes 2D DIMENSIONS Left Atrium(2D)3.7 (1.6-4.0cm)IVSd1.0 (0.7-1.1cm) Aortic Root(2D)3.3 (2.0-3.7cm)LVDd4.4 (3.9-5.9cm) LVOT Diameter2.0 (1.8-2.4cm)PWd0.9 (0.7-1.1cm) LVDs2.7 (2.5-4.0cm)FS (%) 39.0 % SV61.5 mlLVEF(%)69.7 (>50%) Aortic Valve AoV Peak Joe.127.8cm/sAoV VTI26.8cm AO Peak GR.6.5mmHgLVOT Peak Joe.87.5cm/s LVOT VTI 20.16cmAO Mean GR.3mmHg MARLENE (VMAX)1.76jp1ATL (VTI)2.42cm2 AI P 1/2 Pszu313bc Mitral Valve MV E Imnawlkv48.0cm/sMV DECEL OOQX599dg MV A Osfpduec20.5cm/sMV TYQ24ed E/A Ratio0.9MVA (PHT)3.41cm2 TDI E/Lateral E'7.3E/Medial E'11.7 Pulmonary Valve PV Peak Qtuhhkrl74.4cm/sPV Peak Grad.4mmHg Tricuspid Valve TR P. Rjzoavqg403tn/sRAP WCMVOMXC5xuBk TR Peak Gr.38txFaTOJW09xrNe Pulmonary Vein S1 Kpqkfkww55.8cm/sD2 Clztqola08.1cm/s PVa [id number] LEFT VENTRICLE The left ventricle is normal size. There is normal left ventricular wall thickness. The left ventricu lar systolic function is normal and the ejection fraction is within normal range. EF 55% There is nor mal LV segmental wall motion. Transmitral Doppler flow pattern is Grade I-abnormal relaxation pattern . RIGHT VENTRICLE The right ventricle is normal size. There is normal right ventricular wall thickness. The right ventr icular systolic function is normal. ATRIA The left atrium is borderline dilated. The right atrium size is normal. The interatrial septum is int act with no evidence for an atrial septal defect or patent foramen ovale as noted on 2-D or Doppler i maging. AORTIC VALVE The aortic valve is normal in structure and function. Doppler and Color Flow revealed mild aortic reg urgitation. There is no significant aortic valvular stenosis. Calculated aortic valve area is 2.49 cm 2 with maximum pressure gradient of 8 mmHg and mean pressure gradient of 4 mmHg. MITRAL VALVE The mitral valve is normal in structure and function. There is no evidence of mitral valve prolapse. There is no mitral valve stenosis. Doppler and Color-flow revealed trace mitral regurgitation. TRICUSPID VALVE The tricuspid valve is normal in structure and function. Doppler and Color Flow revealed trace tricus pid regurgitation with an estimated PAP of 31 mmHg. There is no tricuspid valve stenosis. PULMONIC VALVE The pulmonic valve is not well visualized. Doppler and Color Flow revealed no pulmonic valvular regur gitation. There is no pulmonic valvular stenosis. GREAT VESSELS The aortic root is normal in size. The ascending aorta is normal in size. The IVC is normal in size a nd collapses >50% with inspiration. PERICARDIAL EFFUSION There is no evidence of significant pericardial effusion. Critical Notification Critical Value: No <Conclusion> The left ventricular systolic function is normal and the ejection fraction is within normal range. EF 55% There is normal LV segmental wall motion. Doppler and Color Flow revealed mild aortic regurgitation. Signed by : Reyna Roberson, Electronically Approved : 10/06/2020 10:02:11
== END ==
LOC: ECHO 10:26
PROVIDERS: ATTEND Internal Medicine Cardiovascular Disease
DX: I35.1 Nonrheumatic aortic (valve) insufficiency (principal); I48.0 Paroxysmal atrial fibrillation
CPT/HCPCS: 93306